=== PATIENT | female | born 1985 | race Hispanic/Latino ===

== ENCOUNTER 2020-09-11 08:01 | Inpatient (IN) | payer OTHER ==
[~2020-09-11] VITALS: Ht 149.9 cm; Wt 62.1 kg
[2020-09-11] MEDS ORDERED: LACTATED RINGERS 1000ML 1,000 ML IV PRN (08:30)
[2020-09-11 08:49] LABS: APPEARANCE,URINE Clear (CLEAR); BILIRUBIN,URINE Negative (NEGATIVE); COLOR,URINE Yellow (YELLOW); GLUCOSE, URINE (UA) Negative (NEGATIVE); KETONES,URINE Negative (NEGATIVE); LEUKOCYTE ESTERASE ,URINE Trace (NEGATIVE); NITRATE,URINE Negative (NEGATIVE); OCCULT BLOOD,URINE Moderate (NEGATIVE); PROTEIN,URINE POS 1+ mg/dL (NEGATIVE); UROBILINOGEN,URINE 0.2 mg/dL (0.2-1.0)
[2020-09-11 08:56] LABS: HEMATOCRIT 38.4 % (36-48); MEAN CORPUSCULAR HEMOGLOBIN 30.8 pg (27.0-33.0); MEAN CORPUSCULAR HGB CONC 34.1 g/dL (32.0-36.0); MEAN CORPUSCULAR VOLUME 90.1 fL (79-99); PLATELET COUNT (AUTO) 149 K/uL (130-400); RED BLOOD CELL COUNT(AUTO) 4.26 MIL/uL (4.00-5.50); RED CELL DISTRIBUTION WIDTH 13.4 % (11.0-15.5); WHITE BLOOD COUNT (AUTO) 15.2 K/uL (4.8-10.8)
[2020-09-11] MEDS ORDERED: LACTATED RINGERS 500 ML 500 ML IV PRN (09:00)
[2020-09-11] MEDS ORDERED: OXYTOCIN-LR 20 UNITS/1000 ML 1,000 ML IV SCH ×2 (09:00→14:30)
[2020-09-11] MEDS ORDERED: NALOXONE HCL 0.4 MG/1 ML ML IV PRN (09:00)
[2020-09-11] MEDS ORDERED: EPHEDRINE SULFATE 50 MG/ML AMPULE IVP PRN (09:00)
[2020-09-11 09:14] LABS: BACTERIA,URINE Few /HPF (None Seen); MUCUS,URINE Few LPF (None Seen); RBC,URINE 0-1 /HPF (0-1); SQUAMOUS EPITHELIAL CELL,UR Moderate /HPF (0-2)
[2020-09-11] MEDS ORDERED: METHYLERGONOVINE MALEATE 0.2 MG/1 ML ML ONE (14:06)
[2020-09-11] MEDS ORDERED: WITCH HAZEL 1 PAD TP PRN (14:30)
[2020-09-11] MEDS ORDERED: LANOLIN 30GM OINTMENT TP PRN (14:30)
[2020-09-11] MEDS ORDERED: DIPH,PERTUSS(ACELL),TET VAC/PF 0.5 ML VIAL IM PRN (14:30)
[2020-09-11] MEDS ORDERED: ACETAMINOPHEN WITH CODEINE 1 TAB TAB PO PRN (14:30)
[2020-09-11] MEDS ORDERED: MEASLES/MUMPS/RUBELLA VACCINE, LIVE 0.5 ML/VIAL SQ PRN (14:30)
[2020-09-11] MEDS ORDERED: ACETAMINOPHEN 325 MG TAB PO PRN (14:30)
[2020-09-11] MEDS ORDERED: BENZOCAINE/LANOLIN/ALOE VERA 60 ML AEROSOL TP PRN (14:30)
[2020-09-11 16:45] VITALS: BP 147/86
[2020-09-11] MEDS: IBUPROFEN 600 MG TABLET PO PRN (17:34)
[2020-09-11] MEDS ORDERED: PNV1TABL17 PO (17:38)
[2020-09-11 19:20] VITALS: BP 115/42
[2020-09-11] MEDS: DOCUSATE SODIUM 100 MG CAP PO SCH (21:03)
[2020-09-12] VITALS (7 sets, daily range): BP systolic 102–137; BP diastolic 69–85
[2020-09-12] MEDS: IBUPROFEN 600 MG TABLET PO PRN ×3 (03:42→18:55)
[2020-09-12 08:14] LABS: HEPATITIS Bs ANTIGEN SCREEN P Negative (Negative)
[2020-09-12] MEDS: DOCUSATE SODIUM 100 MG CAP PO SCH ×2 (09:18→20:54)
[2020-09-13] MEDS: IBUPROFEN 600 MG TABLET PO PRN ×2 (01:54→08:16)
[2020-09-13 03:01] VITALS: BP 125/77
[2020-09-13 07:40] VITALS: BP 117/80
[2020-09-13] MEDS: DOCUSATE SODIUM 100 MG CAP PO SCH (08:15)
[2020-09-13 11:47] VITALS: BP 114/77
== END 2020-09-13 13:35 | disposition home or self-care (01) | DRG 807 ==
LOC: EDH 08:01 → OBSVTOIN 08:02 → LDH 08:02 → WSH 16:40
PROVIDERS: ADMIT Obstetrics & Gynecology; ATTEND Obstetrics & Gynecology
PROC: 10E0XZZ Delivery of Products of Conception, External Approach (ICD-10-PCS; principal; 2020-09-11)
PROC: 0KQM0ZZ Repair Perineum Muscle, Open Approach (ICD-10-PCS; 2020-09-11)
PROC: 10907ZC Drainage of Amniotic Fluid, Therapeutic from Products of Conception, Via Natural or Artificial Opening (ICD-10-PCS; 2020-09-11)
PROC: 3E0R3BZ Introduction of Anesthetic Agent into Spinal Canal, Percutaneous Approach (ICD-10-PCS; 2020-09-11)
PROC: 00HU33Z Insertion of Infusion Device into Spinal Canal, Percutaneous Approach (ICD-10-PCS; 2020-09-11)
DX: O77.0 Labor and delivery complicated by meconium in amniotic fluid (principal); Z37.0 Single live birth; Z3A.37 37 weeks gestation of pregnancy; O70.1 Second degree perineal laceration during delivery; O62.2 Other uterine inertia
CPT/HCPCS: 36415; 81001; 85027; 86592; 86850; 86900; 86901; 87340; A4314; G0378; J2210; J2590; J3490; J7120